=== PATIENT | female | born 1955 | race Caucasian/White ===

== ENCOUNTER 2021-02-04 22:49 | Emergency (ER) | payer OTHER, MEDICARE ==
[~2021-02-04] VITALS: Ht 157.5 cm; Wt 53.8 kg
[2021-02-04 23:29] LABS: BASO % 0 % (0-3); EOS # 0.2 x10^3/uL (0.0-0.7); EOS % 3 % (0-3); HEMATOCRIT 33.5 % (36.0-47.0); HEMOGLOBIN 11.9 g/dL (12.0-15.5); LYMPH # 3.8 x10^3/uL (1.0-4.8); LYMPH % 46 % (24-48); MEAN CORPUSCULAR HEMOGLOBIN 34 pg (25-35); MEAN CORPUSCULAR HGB CONC 35 g/dL (31-37); MEAN CORPUSCULAR VOLUME 97 fL (79-100); MONO # 0.7 x10^3/uL (0.0-1.1); MONO % 9 % (0-9); NEUT # 3.5 x10^3/uL (1.8-7.7); NEUT % 42 % (31-73); PLATELET COUNT 334 x10^3/uL (140-400); RED BLOOD COUNT 3.44 x10^6/uL (3.50-5.40); RED CELL DISTRIBUTION WIDTH 13.1 % (11.5-14.5); WHITE BLOOD COUNT 8.2 x10^3/uL (4.0-11.0)
[2021-02-04] MEDS ORDERED: IV NORMAL SALINE 1000ML BAG 1,000 ML IV ONE (23:30)
[2021-02-04 23:41] LABS: CALCIUM 9.4 mg/dL (8.5-10.1); CREATININE 0.8 mg/dL (0.6-1.0); GFR 71.8; POTASSIUM 4.1 mmol/L (3.5-5.1)
[2021-02-04 23:47] LABS: ALBUMIN 3.7 g/dL (3.4-5.0); ALBUMIN/GLOBULIN RATIO 1.4 (1.0-1.7); TOTAL BILIRUBIN 0.5 mg/dL (0.2-1.0); TOTAL PROTEIN 6.4 g/dL (6.4-8.2)
--- NOTE | 2021-02-04 23:53 | RAD ---
EXAM: CT HEAD WITHOUT IV CONTRAST CLINICAL HISTORY: Reason: fall, chi, neck pain / Spl. Instructions: / History: COMPARISON: None. TECHNIQUE: Routine CT of the head without contrast. Soft tissues and bone windows were reviewed. PQRS compliance statement - One or more of the following individualized dose reduction techniques wer e utilized for this study: 1. Automated exposure control 2. Adjustment of the mA and/or kV according to patient size 3. Use of iterative reconstruction technique FINDINGS: There is no evidence of hemorrhage, mass or extra-axial fluid collection. Bob-white differentiation is maintained with no evidence of edema. There is no mass effect or shift of the intracranial structures. The ventricles, basilar cisterns and cortical sulci are normal in size and configuration for the malinda ents stated age. The cerebellum and brainstem are unremarkable. The calvarium demonstrates no evidence of fracture or focal lesion. There is normal aeration of the visualized paranasal sinuses and mastoid air cells. The visualized portions of the orbits are normal. IMPRESSION: No evidence for acute intracranial process. EXAM: CT CERVICAL SPINE WITHOUT IV CONTRAST CLINICAL HISTORY: Reason: fall, chi, neck pain / Spl. Instructions: / History: COMPARISON: None available. TECHNIQUE: Helical CT of the cervical spine was performed. Axial, coronal and sagittal reformatted im ages were also performed. PQRS compliance statement - One or more of the following individualized dose reduction techniques wer e utilized for this study: 1. Automated exposure control 2. Adjustment of the mA and/or kV according to patient size 3. Use of iterative reconstruction technique FINDINGS: Vertebral body heights are preserved. Disc heights are preserved. No spondylolisthesis. No significan t prevertebral swelling. Visualized thyroid is unremarkable. Biapical emphysematous changes are seen. IMPRESSION: No acute cervical spine fracture or subluxation. Electronically signed by: Juan Sam MD (02/04/2021 11:50 PM) [facility]
[2021-02-05] MEDS ORDERED: CETIRIZINE HCL 10 MG TABLET. PO ONE (00:15)
[2021-02-05] MEDS ORDERED: PSEUDOEPHEDRINE 30 MG TABLET. PO ONE (00:15)
[2021-02-05] MEDS ORDERED: AMOXICILLIN/K CLAV 500/125MG TABLET. PO ONE (00:15)
[2021-02-05] MEDS ORDERED: CETI1TAB7 PO (00:34)
[2021-02-05] MEDS ORDERED: CIPR7.5D EACH EAR (00:34)
--- NOTE | 2021-02-05 00:39 | ED.ADGEN ---
Past Medical History Past Medical History: Anxiety Past Surgical History: Cholecystectomy, Other Additional Past Surgical Histo: HERNIA REPAIR Smoking Status: Current Every Day Smoker Alcohol Use: None General Adult EDM: Chief Complaint: SYNCOPE HPI: HPI: Patient is a 65-year-old previously healthy female who presents to the emergency room after having a syncopal episode. Patient has been having sinus congestion and bilateral ear pain for the last week. She states that she suddenly got really dizzy and passed out. She did hit her head on a counter on her way down. She is having posterior head and neck pain. She denies pain anywhere else. She has this is a dull achy pain. She denies any chest pain, headache, shortness of breath. She states that now she just has bilateral ear pain worse in the left ear. She has not had any kind of drainage. Review of Systems: Review of Systems: Complete ROS is negative unless otherwise documented in HPI Current Medications: Current Medications Medications (Trade) Dose Ordered Sig/Tanner Start Time Stop Time Status Last Admin Dose Admin Amoxicillin/ Clavulanate Potassium (Augmentin 500/ 125mg) 1 tab 1X ONCE 02/05/21 00:15 02/05/21 00:20 DC 02/05/21 00:47 1 TAB Cetirizine HCl (ZyrTEC) 10 mg 1X ONCE 02/05/21 00:15 02/05/21 00:20 DC 02/05/21 00:46 10 MG Pseudoephedrine HCl (Sudafed) 30 mg 1X ONCE 02/05/21 00:15 02/05/21 00:20 DC 02/05/21 00:47 30 MG Sodium Chloride 1,000 ml @ 1,000 mls/hr 1X ONCE 02/04/21 23:30 02/05/21 00:29 DC 02/04/21 23:44 1,000 MLS/HR Allergies: Allergies: Allergies Coded Allergies Type Severity Reaction Last Updated Verified morphine Allergy Mild ITCHING 02/04/21 Yes Physical Exam: PE: General: Awake, alert, NAD. Well Nourished, well hydrated. Cooperative HEENT: Atraumatic, EOMI, PERRL, airway patent, moist oral mucosa, bilateral TMs with effusions, small perforation in the left ear Neck: Supple, trachea midline Respiratory: CTA bilaterally, normal effort, no wheezing/crackles CV: RRR, no murmur, cap refill <2 GI: Soft, nondistended, nontender, no masses MSK: No obvious deformities Skin: Warm, dry, intact Neuro: A&O x3, speech NL, sensory and motor grossly intact, no focal deficits Psych: Normal affect, normal mood, not suicidal or homicidal Current Patient Data: Labs: Laboratory Tests Test 02/04/21 23:05 White Blood Count 8.2 x10^3/uL (4.0-11.0) Red Blood Count 3.44 x10^6/uL (3.50-5.40) L Hemoglobin 11.9 g/dL (12.0-15.5) L Hematocrit 33.5 % (36.0-47.0) L Mean Corpuscular Volume 97 fL (79-100) Mean Corpuscular Hemoglobin 34 pg (25-35) Mean Corpuscular Hemoglobin Concent 35 g/dL (31-37) Red Cell Distribution Width 13.1 % (11.5-14.5) Platelet Count 334 x10^3/uL (140-400) Neutrophils (%) (Auto) 42 % (31-73) Lymphocytes (%) (Auto) 46 % (24-48) Monocytes (%) (Auto) 9 % (0-9) Eosinophils (%) (Auto) 3 % (0-3) Basophils (%) (Auto) 0 % (0-3) Neutrophils # (Auto) 3.5 x10^3/uL (1.8-7.7) Lymphocytes # (Auto) 3.8 x10^3/uL (1.0-4.8) Monocytes # (Auto) 0.7 x10^3/uL (0.0-1.1) Eosinophils # (Auto) 0.2 x10^3/uL (0.0-0.7) Basophils # (Auto) 0.0 x10^3/uL (0.0-0.2) Sodium Level 139 mmol/L (136-145) Potassium Level 4.1 mmol/L (3.5-5.1) Chloride Level 102 mmol/L (98-107) Carbon Dioxide Level 26 mmol/L (21-32) Anion Gap 11 (6-14) Blood Urea Nitrogen 11 mg/dL (7-20) Creatinine 0.8 mg/dL (0.6-1.0) Estimated GFR (Cockcroft-Gault) 71.8 BUN/Creatinine Ratio 14 (6-20) Glucose Level 91 mg/dL (70-99) Calcium Level 9.4 mg/dL (8.5-10.1) Total Bilirubin 0.5 mg/dL (0.2-1.0) Aspartate Amino Transferase (AST) 17 U/L (15-37) Alanine Aminotransferase (ALT) 16 U/L (14-59) Alkaline Phosphatase 44 U/L (46-116) L Troponin I Quantitative < 0.017 ng/mL (0.000-0.055) Total Protein 6.4 g/dL (6.4-8.2) Albumin 3.7 g/dL (3.4-5.0) Albumin/Globulin Ratio 1.4 (1.0-1.7) Laboratory Tests 02/04/21 23:05 Laboratory Tests 02/04/21 23:05 Vital Signs: Vital Signs Date Time Temp Pulse Resp B/P (MAP) Pulse Ox O2 Delivery O2 Flow Rate FiO2 02/04/21 22:52 98.3 82 15 103/53 (70) 98 Room Air 98.3 EKG: EKG: [] Heart Score: C/O Chest Pain: N/A Risk Factors: Risk Factors: DM, Current or recent (<one month) smoker, HTN, HLP, family history of CAD, obesity. Risk Scores: Score 0 - 3: 2.5% MACE over next 6 weeks - Discharge Home Score 4 - 6: 20.3% MACE over next 6 weeks - Admit for Clinical Observation Score 7 - 10: 72.7% MACE over next 6 weeks - Early Invasive Strategies Radiology/Procedures: Radiology/Procedures: [] Course & Med Decision Making: Course & Med Decision Making Pertinent Labs and Imaging studies reviewed. (See chart for details) Patient 65-year-old female presents to the emergency room after having a syncopal episode. Syncopal episode was preceded by dizziness which is now resolved. It is possible that this is when her small perforated eardrum occurred. She does not have any ear drainage. She does have effusions in both ears. Given patient's age we will do a work-up for syncope. We will also do a CT head and C-spine to rule out traumatic injuries. CT and labs are unremarkable. EKG is unremarkable. Patient continues to not have any shortness of breath, chest pain, headache. These make ACS, pulmonary embolism, intracranial hemorrhage unlikely. Patient would like to go home. We will start her on antibiotics for her ear. Discussed with patient and family that while this may have came from the ear we cannot fully rule out other causes of syncope as we were unable to know if she had an arrhythmia when this occurred. We discussed that she does need to come back to the emergency room if she has any further dizziness or syncope. We also discussed she should come to the emergency room if she has chest pain, shortness of breath, headache, or any other concerns. Patient's test results and vitals while in the ED were fully reviewed and discussed with the patient. Patient is stable and at this time does not need admission to the hospital. We have discussed strict return precautions and the importance of following up with their Primary Care Physician. Patient stated understanding and was given an opportunity to ask any questions. Patient is in agreement with plan. Dragon Disclaimer: David Disclaimer: This electronic medical record was generated, in whole or in part, using a voice recognition dictation system. Departure Departure Impression: Primary Impression: Syncope Additional Impression: Otitis media Disposition: HOME / SELF CARE / HOMELESS Condition: IMPROVED Patient Instructions: Otitis Media with Effusion, Syncope Scripts Amoxicillin/Potassium Clav (AUGMENTIN 875-125 TABLET) 1 Each Tablet 1 TAB PO Q12HR for 5 Days, #10 TAB Prov: JULIUS DAVIS MD 02/05/21 Cetirizine Hcl/Pseudoephedrine (ZYRTEC-D TABLET) 1 Each Tab.er.12h 1 TAB PO BID, #20 TAB Prov: JULIUS DAVIS MD 02/05/21 Ciprofloxacin Hcl/Dexameth (CIPRODEX OTIC SUSPENSION) 7.5 Ml Drops.susp 4 DROP EACH EAR BID for 5 Days, #7.5 ML Prov: JULIUS DAVIS MD 02/05/21 Problem Qualifiers JULIUS DAVIS MD February 05, 2021 00:39
[2021-02-05] MEDS ORDERED: AMOX1TAB61 PO (00:53)
[2021-02-05 01:12] VITALS: BP 103/55
[2021-02-05] MEDS ORDERED: oxyCODONE/APAP 5/325 1 TAB TABLET PO ONE (01:15)
== END 2021-02-05 01:38 | disposition home or self-care (01) ==
LOC: ER 22:49
DX: R55 Syncope and collapse (principal); H66.93 Otitis media, unspecified, bilateral; F17.200 Nicotine dependence, unspecified, uncomplicated; Z88.5 Allergy status to narcotic agent
CPT/HCPCS: 36415; 70450; 72125; 80053; 84484; 85025; 96360; 99285; J7030

== ENCOUNTER 2021-02-19 15:56 | Emergency (ER) | payer OTHER, MEDICARE ==
[~2021-02-19] VITALS: Ht 162.6 cm; Wt 52.0 kg
[~2021-02-19 15:56] MED LIST: AMOX1TAB61 PO; CETI1TAB7 PO; CIPR7.5D EACH EAR
[2021-02-19 16:00] VITALS: BP 115/58
[2021-02-19] MEDS ORDERED: CIPR7.5D OT (16:44)
[2021-02-19] MEDS ORDERED: CETI1TAB7 PO ×2 (16:44→16:46)
[2021-02-19] MEDS ORDERED: AMOX1TAB61 PO (16:44)
--- NOTE | 2021-02-19 16:46 | PHYS DOC ---
Past Medical History Past Medical History: Anxiety Past Surgical History: Cholecystectomy, Other Additional Past Surgical Histo: HERNIA REPAIR Smoking Status: Current Every Day Smoker Alcohol Use: None General Adult EDM: Chief Complaint: EARACHE/EAR PAIN HPI: HPI: Patient is a 65 year old female who presents to the ED today complaining mild left ear pain, symptoms began February 05, 2021. Patient states she was seen in the ED was diagnosed with TM perforation and sent home with Augmentin for 5 days, Ciprodex Zyrtec-D. Patient denies any fever. Patient appears sad, she states she just lost her a couple months ago. She states she talks to her own daughter for support. Review of Systems: Review of Systems: Constitutional: Denies fever or chills. [] Eyes: Denies change in visual acuity. [] HENT: Reports left ear pain. Denies nasal congestion or sore throat. [] Respiratory: Denies cough or shortness of breath. [] Cardiovascular: Denies chest pain or edema. [] GI: Denies abdominal pain, nausea, vomiting, bloody stools or diarrhea. [] : Denies dysuria. [] Musculoskeletal: Denies back pain or joint pain. [] Integument: Denies rash. [] Neurologic: Denies headache, focal weakness or sensory changes. [] Psychiatric: Denies depression or anxiety. [] Heart Score: C/O Chest Pain: N/A Risk Factors: Risk Factors: DM, Current or recent (<one month) smoker, HTN, HLP, family history of CAD, obesity. Risk Scores: Score 0 - 3: 2.5% MACE over next 6 weeks - Discharge Home Score 4 - 6: 20.3% MACE over next 6 weeks - Admit for Clinical Observation Score 7 - 10: 72.7% MACE over next 6 weeks - Early Invasive Strategies Allergies: Allergies: Allergies Coded Allergies Type Severity Reaction Last Updated Verified morphine Allergy Mild ITCHING 02/04/21 Yes Physical Exam: PE: Constitutional: Well developed, well nourished, no acute distress, non-toxic appearance. [] HENT: Normocephalic, atraumatic, bilateral external ears normal, oropharynx moist, no oral exudates, nose normal. [] Left TM still has some cloudy fluid. The perforations are getting better in the left TM Eyes: PERRLA, EOMI, conjunctiva normal, no discharge. [] Neck: Normal range of motion, no tenderness, supple, no stridor. [] Cardiovascular:Heart rate regular rhythm, no murmur [] Lungs & Thorax: Bilateral breath sounds clear to auscultation [] Abdomen: Bowel sounds normal, soft, no tenderness, no masses, no pulsatile masses. [] Skin: Warm, dry, no erythema, no rash. [] Back: No tenderness, no CVA tenderness. [] Extremities: No tenderness, no cyanosis, no clubbing, ROM intact, no edema. [] Neurologic: Alert and oriented X 3, normal motor function, normal sensory function, no focal deficits noted. Cranial nerves II-XII intact Psychologic: sad, crying. Current Patient Data: Vital Signs: Vital Signs Date Time Temp Pulse Resp B/P (MAP) Pulse Ox O2 Delivery O2 Flow Rate FiO2 02/19/21 16:00 98.5 97 18 115/58 (77) 97 Room Air 98.5 EKG: EKG: [] Radiology/Procedures: Radiology/Procedures: [] Course & Med Decision Making: Course & Med Decision Making Pertinent Labs and Imaging studies reviewed. (See chart for details) This is a 65-year-old female patient presented to the ED today with ongoing left ear pain. She was treated with 5 days of Augmentin Ciprodex and Zyrtec. I requested she takes the Augmentin for five more days and the use of the Ciprodex and Zyrtec for five more days. Prescriptions were given. ENT for follow-up. Patient appears to be still grieving the of the . I recommended pat team to talk to her she refused. David Disclaimer: David Disclaimer: This electronic medical record was generated, in whole or in part, using a voice recognition dictation system. Departure Departure Impression: Primary Impression: Left otitis media with effusion Additional Impressions: Ear drum perforation Qualified Codes: H72.92 - Unspecified perforation of tympanic membrane, left ear Grief Disposition: HOME / SELF CARE / HOMELESS Condition: STABLE Referrals: UNKNOWN PCP NAME (PCP) VIRGINIA MEMBRENO MD follow up in one week Patient Instructions: Grief Reaction, Otitis Media, Adult, [id number] Additional Instructions: Please use the medicines ordered as prescribed. Please consider getting counselling for grief. Please consider following up with ENT Scripts Cetirizine Hcl/Pseudoephedrine (ZYRTEC-D TABLET) 1 Each Tab.er.12h 1 TAB PO BID, #20 TAB Prov: XAVIER CASE APRN 02/19/21 Ciprofloxacin Hcl/Dexameth (CIPRODEX OTIC SUSPENSION) 7.5 Ml Drops.susp 7.5 ML OT BID, #5 ML Prov: XAVIER CASE APRN 02/19/21 Amoxicillin/Potassium Clav (AUGMENTIN 875-125 TABLET) 1 Each Tablet 1 TAB PO BID for 5 Days, #10 TAB 0 Refills Prov: XAVIER CASE APRN 02/19/21 XAVIER CASE APRN Feb 19, 2021 16:46
== END 2021-02-19 16:45 | disposition home or self-care (01) ==
LOC: ER 15:56
DX: H65.92 Unspecified nonsuppurative otitis media, left ear (principal); H72.92 Unspecified perforation of tympanic membrane, left ear; F41.9 Anxiety disorder, unspecified; F17.200 Nicotine dependence, unspecified, uncomplicated; Z88.5 Allergy status to narcotic agent
CPT/HCPCS: 99283

== ENCOUNTER 2021-12-13 18:57 | Emergency (ER) | payer OTHER, MEDICARE ==
[~2021-12-13] VITALS: Ht 157.5 cm; Wt 52.0 kg
[~2021-12-13 18:57] MED LIST changes: +CIPR7.5D OT
[2021-12-13] MEDS ORDERED: fentaNYL PF VIAL 100 MCG/2 ML VIAL IV PRN (19:15)
[2021-12-13] MEDS ORDERED: ASPIRIN 325 MG TABLET PO ONE (19:15)
[2021-12-13] MEDS ORDERED: NITROGLYCERIN SUBLINGUAL 0.4 MG BOTTLE OF 25. SL PRN (19:15)
--- NOTE | 2021-12-13 19:48 | RAD ---
Study: XR CHEST 1V Indication: Chest pain. Comparison: 09/17/2019 Findings: Within normal limits cardiomediastinal silhouette and glen. Unchanged generalized interstitial promin ence. No confluent infiltrate, pleural effusion or pneumothorax. Hyperexpanded lungs and flattening o f the diaphragm. Impression: Emphysematous changes with pleuroparenchymal scarring. No acute radiographic abnormality of the chest . Electronically signed by: JANNETH HYDE MD (12/13/2021 7:46 PM) [facility]
[2021-12-13 20:06] LABS: BASO % 0 % (0-3); EOS # 0.1 x10^3/uL (0.0-0.7); EOS % 1 % (0-3); HEMATOCRIT 34.3 % (36.0-47.0); HEMOGLOBIN 12.1 g/dL (12.0-15.5); LYMPH # 3.6 x10^3/uL (1.0-4.8); LYMPH % 50 % (24-48); MEAN CORPUSCULAR HEMOGLOBIN 35 pg (25-35); MEAN CORPUSCULAR HGB CONC 35 g/dL (31-37); MEAN CORPUSCULAR VOLUME 99 fL (79-100); MONO # 0.9 x10^3/uL (0.0-1.1); MONO % 13 % (0-9); NEUT # 2.6 x10^3/uL (1.8-7.7); NEUT % 36 % (31-73); PLATELET COUNT 388 x10^3/uL (140-400); RED BLOOD COUNT 3.46 x10^6/uL (3.50-5.40); RED CELL DISTRIBUTION WIDTH 13.4 % (11.5-14.5); WHITE BLOOD COUNT 7.1 x10^3/uL (4.0-11.0)
[2021-12-13 20:18] LABS: CALCIUM 9.8 mg/dL (8.5-10.1); CREATININE 0.9 mg/dL (0.6-1.0); GFR 62.5; POTASSIUM 3.5 mmol/L (3.5-5.1)
[2021-12-13 20:22] LABS: ALBUMIN 4.3 g/dL (3.4-5.0); ALBUMIN/GLOBULIN RATIO 1.2 (1.0-1.7); MAGNESIUM 2.3 mg/dL (1.8-2.4); TOTAL BILIRUBIN 0.5 mg/dL (0.2-1.0); TOTAL PROTEIN 7.8 g/dL (6.4-8.2)
--- NOTE | 2021-12-13 20:45 | RAD ---
Exam: CT head INDICATION: Numbness, bilateral lower extremities TECHNIQUE: Sequential axial images through the head were obtained without the administration of IV co ntrast. Exposure: One or more of the following in the visualized dose reduction techniques were utilized for this examination: 1. Automated exposure control 2. Adjustment of the MA and/or KV according to patient size 3. Use of iterative of reconstructive technique Comparisons: 02/04/2021 FINDINGS: No focal parenchymal lesion or hemorrhage is identified. There is no midline shift or sulcal effaceme nt. Mild patchy hypodensity in the periventricular white matter. No acute vascular territory infarction i s identified. Hazel-white distinction is preserved. The ventricular system is within normal limits without compression hydrocephalus. The basal cisterns are well maintained. The visualized portions of the paranasal sinuses and mastoid air cells are well-pneumatized. No acute fractures. IMPRESSION: Mild small vessel ischemic change which is progressed from the prior exam, technically age indetermin ate without recent prior imaging. Electronically signed by: Hugo Infante MD (12/13/2021 8:43 PM) [facility]
--- NOTE | 2021-12-13 22:55 | PHYS DOC ---
Past Medical History Past Medical History: Anxiety Past Surgical History: Cholecystectomy, Tonsillectomy, Other Additional Past Surgical Histo: HERNIA REPAIR Smoking Status: Current Every Day Smoker Alcohol Use: None General Adult EDM: Chief Complaint: CHEST PAIN HPI: HPI: Patient is a 66 year old female with history of anxiety presenting today with multiple complaints. Patient states she had tingling to the left at 930 this morning, she states that she developed 3 out of 10 left-sided chest pain, she states the tingling went to her right hand and then went to bilateral lower extremities. Denies anything specifically exacerbating or relieving her chest pain. She states she has anxiety and this could be her anxiety. She states she has been following up with her PCP for inner ear problems including balance issues. She states she was referred to an ENT who referred her to a cardiolo gist. She states she has a cardiology appointment this month. Denies any headache, nausea, vomiting. Review of Systems: Review of Systems: Constitutional: Denies fever or chills. [] Eyes: Denies change in visual acuity. [] HENT: Denies nasal congestion or sore throat. [] Respiratory: Denies cough or shortness of breath. [] Cardiovascular: Reports left-sided chest pain GI: Denies abdominal pain, nausea, vomiting, bloody stools or diarrhea. [] : Denies dysuria. [] Musculoskeletal: Denies back pain or joint pain. [] Integument: Denies rash. [] Neurologic: Reports tingling to bilateral upper and lower extremities, denies denies headache, focal weakness or sensory changes. Psychiatric: Denies depression or anxiety. [] Heart Score: C/O Chest Pain: Yes HEART Score for Chest Pain: HEART Score for Chest Pain Response (Comments) Value History Slighlty/Non-Suspicious 0 ECG Normal 0 Age > 65 2 Risk Factors No Risk Factors 0 Troponin < Normal Limit 0 Total 2 Risk Factors: Risk Factors: DM, Current or recent (<one month) smoker, HTN, HLP, family history of CAD, obesity. Risk Scores: Score 0 - 3: 2.5% MACE over next 6 weeks - Discharge Home Score 4 - 6: 20.3% MACE over next 6 weeks - Admit for Clinical Observation Score 7 - 10: 72.7% MACE over next 6 weeks - Early Invasive Strategies Current Medications: Current Medications Medications (Trade) Dose Ordered Sig/Tanner Start Time Stop Time Status Last Admin Dose Admin Aspirin (Ryan Aspirin) 325 mg 1X ONCE 12/13/21 19:15 12/13/21 19:16 DC 12/13/21 19:15 325 MG Fentanyl Citrate (Fentanyl 2ml Vial) 50 mcg PRN Q15MIN PRN 12/13/21 19:15 12/14/21 19:14 Nitroglycerin (Nitrostat) 0.4 mg PRN Q5MIN PRN 12/13/21 19:15 12/14/21 19:14 Allergies: Allergies: Allergies Coded Allergies Type Severity Reaction Last Updated Verified morphine Allergy Mild ITCHING 02/04/21 Yes Physical Exam: PE: Constitutional: Well developed, well nourished, no acute distress, non-toxic appearance. [] HENT: Normocephalic, atraumatic, bilateral external ears normal, oropharynx moist, no oral exudates, nose normal. [] Eyes: PERRLA, EOMI, conjunctiva normal, no discharge. [] Neck: Normal range of motion, no tenderness, supple, no stridor. [] Cardiovascular:Heart rate regular rhythm, no murmur [] Lungs & Thorax: Bilateral breath sounds clear to auscultation [] Abdomen: Bowel sounds normal, soft, no tenderness, no masses, no pulsatile masses. [] Skin: Warm, dry, no erythema, no rash. [] Back: No tenderness, no CVA tenderness. [] Extremities: No tenderness, no cyanosis, no clubbing, ROM intact, no edema. [] Neurologic: Alert and oriented X 3, normal motor function, normal sensory function, no focal deficits noted. [] Psychologic: Affect normal, judgement normal, mood normal. [] Current Patient Data: Labs: Laboratory Tests Test 12/13/21 19:45 12/13/21 21:30 White Blood Count 7.1 x10^3/uL (4.0-11.0) Red Blood Count 3.46 x10^6/uL (3.50-5.40) L Hemoglobin 12.1 g/dL (12.0-15.5) Hematocrit 34.3 % (36.0-47.0) L Mean Corpuscular Volume 99 fL (79-100) Mean Corpuscular Hemoglobin 35 pg (25-35) Mean Corpuscular Hemoglobin Concent 35 g/dL (31-37) Red Cell Distribution Width 13.4 % (11.5-14.5) Platelet Count 388 x10^3/uL (140-400) Neutrophils (%) (Auto) 36 % (31-73) Lymphocytes (%) (Auto) 50 % (24-48) H Monocytes (%) (Auto) 13 % (0-9) H Eosinophils (%) (Auto) 1 % (0-3) Basophils (%) (Auto) 0 % (0-3) Neutrophils # (Auto) 2.6 x10^3/uL (1.8-7.7) Lymphocytes # (Auto) 3.6 x10^3/uL (1.0-4.8) Monocytes # (Auto) 0.9 x10^3/uL (0.0-1.1) Eosinophils # (Auto) 0.1 x10^3/uL (0.0-0.7) Basophils # (Auto) 0.0 x10^3/uL (0.0-0.2) D-Dimer (Lauren) < 0.27 ug/mlFEU Sodium Level 137 mmol/L (136-145) Potassium Level 3.5 mmol/L (3.5-5.1) Chloride Level 100 mmol/L (98-107) Carbon Dioxide Level 25 mmol/L (21-32) Anion Gap 12 (6-14) Blood Urea Nitrogen 15 mg/dL (7-20) Creatinine 0.9 mg/dL (0.6-1.0) Estimated GFR (Cockcroft-Gault) 62.5 BUN/Creatinine Ratio 17 (6-20) Glucose Level 102 mg/dL (70-99) H Calcium Level 9.8 mg/dL (8.5-10.1) Magnesium Level 2.3 mg/dL (1.8-2.4) Total Bilirubin 0.5 mg/dL (0.2-1.0) Aspartate Amino Transferase (AST) 15 U/L (15-37) Alanine Aminotransferase (ALT) 23 U/L (14-59) Alkaline Phosphatase 50 U/L (46-116) Troponin I High Sensitivity < 4 ng/L (4-50) L 5 ng/L (4-50) UL-Eav-S-Type Natriuretic Peptide 44 pg/mL (0-124) Total Protein 7.8 g/dL (6.4-8.2) Albumin 4.3 g/dL (3.4-5.0) Albumin/Globulin Ratio 1.2 (1.0-1.7) Thyroid Stimulating Hormone (TSH) 2.463 uIU/mL (0.358-3.74) Laboratory Tests 12/13/21 19:45 Laboratory Tests 12/13/21 19:45 Vital Signs: Vital Signs Date Time Temp Pulse Resp B/P (MAP) Pulse Ox O2 Delivery O2 Flow Rate FiO2 12/13/21 19:00 98.0 73 18 107/52 (70) 97 Room Air 98.0 EKG: EK interpreted by Dr. Acosta sinus rhythm heart rate 90 no STEMI [] Radiology/Procedures: Radiology/Procedures: []PROCEDURE: CT HEAD WO CONTRAST Exam: CT head INDICATION: Numbness, bilateral lower extremities TECHNIQUE: Sequential axial images through the head were obtained without the administration of IV contrast. Exposure: One or more of the following in the visualized dose reduction techniques were utilized for this examination: 1. Automated exposure control 2. Adjustment of the MA and/or KV according to patient size 3. Use of iterative of reconstructive technique Comparisons: 02/04/2021 FINDINGS: No focal parenchymal lesion or hemorrhage is identified. There is no midline shift or sulcal effacement. Mild patchy hypodensity in the periventricular white matter. No acute vascular territory infarction is identified. Hazel-white distinction is preserved. The ventricular system is within normal limits without compression hydrocephalus. The basal cisterns are well maintained. The visualized portions of the paranasal sinuses and mastoid air cells are well- pneumatized. No acute fractures. IMPRESSION: Mild small vessel ischemic change which is progressed from the prior exam, technically age indeterminate without recent prior imaging. Electronically signed by: Hugo Conway MD (12/13/2021 8:43 PM) [facility] DICTATED and SIGNED BY: HUGO CONWAY MD DATE: 12/13/212038 PROCEDURE: PORTABLE CHEST 1V Study: XR CHEST 1V Indication: Chest pain. Comparison: 09/17/2019 Findings: Within normal limits cardiomediastinal silhouette and glen. Unchanged generalized interstitial prominence. No confluent infiltrate, pleural effusion or pneumothorax. Hyperexpanded lungs and flattening of the diaphragm. Impression: Emphysematous changes with pleuroparenchymal scarring. No acute radiographic abnormality of the chest. Electronically signed by: JANNETH HYDE MD (12/13/2021 7:46 PM) [facility] DICTATED and SIGNED BY: JANNETH HYDE MD DATE: 12/13/211943 Course & Med Decision Making: Course & Med Decision Making Pertinent Labs and Imaging studies reviewed. (See chart for details) This a 66-year-old female patient presented to the ED today with multiple complaints. Patient states she had tingling to bilateral upper and lower extremities that began this morning. She also reports left-sided chest pain. She arrives in the ED, rested for a while, she states chest pain is gone, tingling is gone. She believes her symptoms could be related to anxiety. CT of the head is negative, EKG is negative, CBC CMP with no acute findings, D- dimer less than 0.27. 2 sets of high-sensitivity troponin are <4, and 5. Heart score 2 Vitals temperature 98.0, heart rate 73, blood pressure 107/52, O2 sats 97% on room air, respiration 18 Patient rested in the ED and now she is pain free and tingling free, she continues to state the symptoms are likely anxiety and was wanting something for anxiety, recommended seeing a PCP and they can prescribe her what she needs, she also states she has to be at work by 6 AM this morning. 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 D/c to home David Disclaimer: David Disclaimer: This electronic medical record was generated, in whole or in part, using a voice recognition dictation system. Departure Departure Impression: Primary Impression: Chest pain Qualified Codes: R07.9 - Chest pain, unspecified Additional Impression: Tingling in extremities Disposition: HOME / SELF CARE / HOMELESS Condition: STABLE Referrals: LORRIE MARRERO MD Follow-up with your mechanical door repairer and primary care doctor as soon as possible Patient Instructions: Chest Pain (Nonspecific) Additional Instructions: You were evaluated in the emergency room, your CT of the head is negative, your cardiac work-up is negative. Please follow-up with your primary care doctor as well as mechanical door repairer as soon as you can. XAVIER CASE WATER ATTENDANT Dec 13, 2021 22:55
[2021-12-13 23:00] VITALS: BP 117/70
--- NOTE | 2021-12-14 08:09 | EKG ---
[facility] [address] [place] [address] Test Date: 2021-12-13 Test Time: 19:06:12 Pat Name: RAYMOND NUÑEZ Department: Room: Gender: F [employer] Supervisor: : 1955 Requested By: XAVIER CASE Order Number: [id number] Reading MD: Rigoberto Perez Measurements Intervals [place] Rate: 90 P: 63 MI: 158 QRS: 62 QRSD: 64 T: 60 QT: 338 QTc: 417 Interpretive Statements SINUS RHYTHM NORMAL ECG RI6.02 No previous ECG available for comparison Electronically Signed On 12-23-2021 9:02:37 CDT by Rigoberto Perez
== END 2021-12-13 23:00 | disposition home or self-care (01) ==
LOC: ER 18:57
DX: R07.89 Other chest pain (principal); F41.9 Anxiety disorder, unspecified; F17.200 Nicotine dependence, unspecified, uncomplicated; Z88.5 Allergy status to narcotic agent
CPT/HCPCS: 36415; 70450; 71045; 80053; 83735; 83880; 84443; 84484; 85025; 85379; 93005; 99285-25

== ENCOUNTER → 2022-01-17 | Outpatient (CLI) | payer OTHER, MEDICARE ==
[~2022-01-17] MED LIST changes: +REGADENOSON 0.4 MG/5 ML DISP.SYRIN. IV ONE
--- NOTE | 2022-01-18 08:12 | RAD ---
MR#: [id number] Date of Study: 01/17/2022 Ordering Physician: DEBORA CHAVES, Referring Physician: SALBADOR URRUTIA Tech: Amy Bacon RT (R) (N) APPROVED REPORT Test Type: Pharmacological Stress Nurse/Tech: Asia MARCH Test Indications: THOMAS x1 year Cardiac History: smoker Medications: see EMR Medical History: see EMR Resting ECG: SR Resting Heart Rate: 81 bpm Resting Blood Pressure: 109/50mmHg Pretest Chest Pain: No chest pain Nurse/Tech Notes Lungs diminished, clear. S1S2 heart tones. No chest pain, No SOA. Pharm. Details Pharmacologic stress testing was performed using 0.4mg per 5ml of regadenoson given intravenously ove r 7-10 seconds. Stress Symptoms Flushing. No chest pain, no SOA. Flushed feeling resolved by recovery period. POST EXERCISE Reason for Termination: Infusion complete Max HR: 116 bpm Max Blood Pressure: 115/48mmHg Blood Pressure response to exercise: Normal blood pressure response during stress. Heart Rate response to exercise: Normal Chest Pain: No. Arrhythmia: No. ST Change: No. INTERPRETATION Stress EKG Conclusion: No evidence of stress induced EKG changes Imaging Protocol IMAGE PROTOCOL: Rest Tc-99m/stress Tc-99m 1 day Rest: Stress: Viability: Radiopharm.Tc99m VtotnfsezLs71n Sestamibi Rhsy52qZs 29.8mCi Duration 13min. 13min. Img Date 01/17/2022 01/17/2022 Inj-Img Rsbc45mgs. 60min. Rest Admin Site:IV - Left AntecubitalAdministrator:YURIDIA Travis, ARRT (R)(N) Stress Admin Site: IV - Left AntecubitalAdministrator: RENETTA Rice STRESS DATA End Diast. Vol.46.0mlLVEDV index BSA31.0ml End Syst. Vol.11.0mlLVESV index BSA7.0ml Myocardial Mass87.0gEject. Svaepwoi61.0% Stress Scores Regional WT0.00Summed WT0.00 Regional WM0.00Summed WM1.00 The rest and stress images show normal perfusion, normal contraction and thickening. LV Perf. Quant 17 Seg. SSS4.00 17 Seg. SRS2.00 17 Seg. SDS2.00 Stress Defect Extent (% LAD)9.40Rest Defect Extent (% LAD)2.50Rev. Defect Extent (% LAD)0.60 Stress Defect Extent (% LCX) 0.00Rest Defect Extent (% LCX)3.80Rev. Defect Extent (% LCX)0.00 Stress Defect Extent (% RCA)0.00Rest Defect Extent (% RCA)0.00Rev. Defect Extent (% RCA)0.00 Stress Defect Extent (% LASHAUN)8.30Rest Defect Extent (% LASHAUN)4.30Rev. Defect Extent (% LASHAUN)1.70 Other Information Quality:Average Risk Assessment: Low Risk Conclusion 1. No evidence of EKG changes with stress testing. 2. Normal perfusion at stress/rest. 3. Low risk study. 4. EF > 60%. Signed by : Oniel Emerson, Electronically Approved : 01/18/2022 08:11:17
--- NOTE | 2022-01-18 08:34 | CARD ---
MR#: [id number] Date of Study: 01/17/2022 Ordering Physician: DEBORA CHAVES, Referring Physician: Christiana URRUTIA: Devora Quinonez [facility] APPROVED REPORT EXAM: Two-dimensional and M-mode echocardiogram with Doppler and color Doppler. Other Information Quality : GoodHR: 78bpm Rhythm : NSR INDICATION Dyspnea 2D DIMENSIONS RVDd2.6 (2.9-3.5cm)Left Atrium(2D)2.9 (1.6-4.0cm) IVSd0.5 (0.7-1.1cm)Aortic Root(2D)2.7 (2.0-3.7cm) LVDd3.8 (3.9-5.9cm)LVOT Diameter1.9 (1.8-2.4cm) PWd0.5 (0.7-1.1cm)LVDs3.0 (2.5-4.0cm) FS (%) 21.7 %SV27.8 ml LVEF(%)44.7 (>50%) Aortic Valve AoV Peak Alfredo.118.2cm/Aniket Peak GR.5.9mmHg LVOT Peak Alfredo.87.8cm/sAVA (VMAX)2.19cm2 Mitral Valve MV E Jfoddhcl06.6cm/sMV DECEL [id number] MV A Qpmlsmxo72.9cm/sE/A Ratio1.0 Pulmonary Valve PV Peak Kjfocwvl94.1cm/s Tricuspid Valve TR P. Wsxmblhu272gw/sRAP VYCTZQPJ2ysGq TR Peak Gr.67wuEcEVCM98ryGi Pulmonary Vein S1 Ttkpgbju36.7cm/sD2 Rplzmozf77.4cm/s PVa rhrvtkxz344albb LEFT VENTRICLE The left ventricle is normal size. There is normal left ventricular wall thickness. The left ventricu lar systolic function is normal and the ejection fraction is within normal range. EF 50-55% Septal mo tion suggestive of conduction defect. Otherwise, grossly normal wall motion. The left ventricular enrike stolic function is normal. No left ventricle thrombus noted on this study. There is no ventricular se ptal defect visualized. There is no left ventricular aneurysm. There is no mass noted in the left mickey tricle. RIGHT VENTRICLE The right ventricle is normal size. There is normal right ventricular wall thickness. The right ventr icular systolic function is normal. ATRIA The left atrium size is normal. The right atrium size is normal. The interatrial septum is intact wit h no evidence for an atrial septal defect or patent foramen ovale as noted on 2-D or Doppler imaging. AORTIC VALVE The aortic valve is normal in structure and function. No aortic regurgitation is present. There is no aortic valvular stenosis. There is no aortic valvular vegetation. MITRAL VALVE The mitral valve is normal in structure and function. There is no evidence of mitral valve prolapse. There is no mitral valve stenosis. Doppler and Color-flow revealed mild mitral regurgitation. TRICUSPID VALVE The tricuspid valve is normal in structure and function. Doppler and Color Flow revealed mild tricusp id regurgitation. The pulmonary artery systolic pressure is estimated at less than 30 mmHg. There is no tricuspid valve prolapse or vegetation. There is no tricuspid valve stenosis. PULMONIC VALVE There is no pulmonic valvular regurgitation. There is no pulmonic valvular stenosis. GREAT VESSELS The aortic root is normal in size. The ascending aorta is normal in size. The IVC is normal in size a nd collapses >50% with inspiration. PERICARDIAL EFFUSION There is no pleural effusion. There is small pericardial effusion without clear echocardiographic gregory dence of tamponade. Critical Notification Critical Value: No <Conclusion> The left ventricular systolic function is normal and the ejection fraction is within normal range. EF 50-55% Septal motion suggestive of conduction defect. Otherwise, grossly normal wall motion. Doppler and Color Flow revealed mild tricuspid regurgitation. The pulmonary artery systolic pressure is estimated at less than 30 mmHg. There is small pericardial effusion without clear echocardiographic evidence of tamponade. Signed by : Oniel Emerson, Electronically Approved : 01/18/2022 08:34:01
== END ==
LOC: ECHO 09:29
PROVIDERS: ATTEND Internal Medicine Cardiovascular Disease
DX: I08.1 Rheumatic disorders of both mitral and tricuspid valves (principal); I31.3 Pericardial effusion (noninflammatory)
CPT/HCPCS: 78452; 93017; 93306; A9500; J2785; C8929